=== PATIENT | female | born 1960 | race African-American/Black ===

== ENCOUNTER 2018-03-13 19:27 | Emergency (ER) | payer SELFPAY ==
[~2018-03-13] VITALS: Ht 157.5 cm; Wt 101.2 kg
[~2018-03-13 19:27] MED LIST: LEVO250T3 PO
[2018-03-13 19:32] VITALS: BP 143/53
--- NOTE | 2018-03-13 19:45 | NUR ---
57/F CAME IN ED WITH BOYFRIEND, C/O POSSIBLE ABSCESS ON R UPPER BACK, X2 WEEKS. R UPPER BACK SWELLING, SLIGHT REDNESS, TENDERNESS NOTED, SKIN INTACT AT THIS TIME, NO PRESENT DISCHARGE. PT REPORTS THAT PT'S FAMILY "POPPED IT" AND IT HAD FOUL ODOR DISCHARGE. PT DENIES FEVER, CP, SOB, COUGH, N/V/D; VSS; PATIENT POSITIONED FOR COMFORT; HOB ELEVATED; BEDRAILS UP X2; BED DOWN. ER PA MADE AWARE.
[2018-03-13 20:22] VITALS: BP 140/60
--- NOTE | 2018-03-13 20:22 | NUR ---
Patient discharged with v/s stable. Written and verbal after care instructions given and explained. Patient alert, oriented and verbalized understanding of instructions. Ambulatory with steady gait. All questions addressed prior to discharge. ID band removed. Patient advised to follow up with PMD. Rx of KEFLEX, IBUPROFEN, BACTRIM given. Patient educated on indication of medication including possible reaction and side effects. Opportunity to ask questions provided and answered.
== END 2018-03-13 20:22 | disposition home or self-care (01) ==
LOC: MED 19:27
DX: L03.312 Cellulitis of back [any part except buttock and flank] (principal); Z79.899 Other long term (current) drug therapy
CPT/HCPCS: 99283

== ENCOUNTER 2022-05-16 11:52 | Emergency (ER) | payer MEDICAID ==
[~2022-05-16] VITALS: Ht 167.6 cm; Wt 115.4 kg
[2022-05-16 12:22] VITALS: BP 145/80
--- NOTE | 2022-05-16 12:34 | NUR ---
PT AMBULATED TO BED 01.
--- NOTE | 2022-05-16 13:13 | NUR ---
DR. PURCELL EVLUATING PATIENT AT BEDSIDE.
[2022-05-16 13:53] LABS: BASOPHILS # (AUTO) 0.1 K/uL (0.00-0.22); BASOPHILS % (AUTO) 1.2 % (0.0-2.0); EOSINOPHILS # (AUTO) 0.2 K/uL (0-0.4); HEMATOCRIT 39.4 % (36-48); HEMOGLOBIN 12.9 g/dL (12.0-16.0); LYMPHOCYTES # (AUTO) 1.7 K/uL (2.5-16.5); LYMPHOCYTES % (AUTO) 21.4 % (20.5-51.1); MEAN CORPUSCULAR HEMOGLOBIN 29 pg (27-31); MEAN CORPUSCULAR HGB CONC 33 g/dL (33-37); MEAN CORPUSCULAR VOLUME 87.7 fL (80-94); MONOCYTES # (AUTO) 0.9 K/uL (0.8-1.0); MONOCYTES % (AUTO) 11.3 % (1.7-9.3); NEUTROPHILS # (AUTO) 5.1 K/uL (1.8-7.7); NEUTROPHILS % (AUTO) 64.1 % (42.2-75.2); PLATELET COUNT (AUTO) 280 K/uL (140-450); RED BLOOD CELL COUNT(AUTO) 4.49 MIL/uL (4.20-5.40); RED CELL DISTRIBUTION WIDTH 13.9 % (11.6-13.7)
[2022-05-16 14:10] LABS: ALBUMIN 3.5 g/dL (3.4-5.0); ANION GAP 9.7 (8-16); CARBON DIOXIDE 28.7 mmol/L (21-32); CREATININE 0.8 mg/dL (0.6-1.3); POTASSIUM 4.4 mmol/L (3.5-5.1); TOTAL BILIRUBIN 0.4 mg/dL (0.0-1.0)
[2022-05-16 14:15] LABS: LIPASE 153 U/L (73-393)
[2022-05-16] MEDS ORDERED: NAPR-54 PO (14:52)
[2022-05-16 15:21] VITALS: BP 146/79
--- NOTE | 2022-05-16 15:21 | NUR ---
Patient discharged with v/s stable. Written and verbal after care instructions given. Patient alert, oriented and verbalized understanding of instructions. Ambulatory with steady gait. All questions addressed prior to discharge. ID band removed. Patient advised to follow up with PMD. Rx of Naproxen given. Opportunity to ask questions provided and answered.
--- NOTE | 2022-05-16 15:22 | NUR ---
Chart checked and completed. The patient's care was reviewed and supervised by Mohini Patel RN.
== END 2022-05-16 15:21 | disposition home or self-care (01) ==
LOC: MED 11:52
DX: R10.30 Lower abdominal pain, unspecified (principal); R60.9 Edema, unspecified; Z79.899 Other long term (current) drug therapy
CPT/HCPCS: 36415; 80053; 81002; 81025; 83690; 83880; 84484; 85025; 99284

== ENCOUNTER 2022-07-26 16:37 | Emergency (ER) | payer MEDICAID ==
[~2022-07-26] VITALS: Ht 167.6 cm; Wt 83.9 kg
[~2022-07-26 16:37] MED LIST changes: +NAPR-54 PO
[2022-07-26 16:51] VITALS: BP 147/71
[2022-07-26] MEDS ORDERED: CYCL-711 PO (18:56)
[2022-07-26] MEDS ORDERED: NAPR-54 PO (18:56)
[2022-07-26] MEDS ORDERED: DICL20GE TP (18:56)
[2022-07-26 19:30] VITALS: BP 147/71
--- NOTE | 2022-07-26 19:30 | NUR ---
PATIENT DISCHARGED WITH NO NURSING INTERVENTIONS DONE . Written and verbal after care instructions given and explained. Patient alert, oriented and verbalized understanding of instructions. Ambulatory with steady gait. All questions addressed prior to discharge. ID band removed. Patient advised to follow up with PMD. Rx of FLEXERIL, VOLTAREN ARTHRITIS, NAPROXEN given. Patient educated on indication of medication including possible reaction and side effects. Opportunity to ask questions provided and answered.
== END 2022-07-26 19:30 | disposition home or self-care (01) ==
LOC: MED 16:37
DX: M26.602 Left temporomandibular joint disorder, unspecified (principal); Z79.899 Other long term (current) drug therapy
CPT/HCPCS: 99283

== ENCOUNTER 2022-08-09 21:00 | Emergency (ER) | payer MEDICAID ==
[~2022-08-09] VITALS: Ht 160 cm; Wt 106.1 kg
[~2022-08-09 21:00] MED LIST changes: +CYCL-711 PO; +DICL20GE TP
[2022-08-09 22:01] VITALS: BP 154/102
[2022-08-10] MEDS ORDERED: CETI-24 PO (00:47)
[2022-08-10] MEDS ORDERED: FLONAS NS (00:47)
--- NOTE | 2022-08-10 00:53 | NUR ---
PATIENT SEEN AND ASSESSED BY NEDA DENNY. NO NURSING INTERVENTIONS DONE. Written and verbal after care instructions given and explained. Patient alert, oriented and verbalized understanding of instructions. Ambulatory with steady gait. All questions addressed prior to discharge. ID band removed. Patient advised to follow up with PMD. Rx of CETIRIZINE HLC, ALUTICASONE PROPIONATE given. Patient educated on indication of medication including possible reaction and side effects. Opportunity to ask questions provided and answered.
== END 2022-08-10 00:53 | disposition home or self-care (01) ==
LOC: MED 21:00
DX: H92.03 Otalgia, bilateral (principal); R07.0 Pain in throat; Z79.899 Other long term (current) drug therapy
CPT/HCPCS: 99282